=== PATIENT | male | born 1975 | race African-American/Black ===

== ENCOUNTER 2018-05-21 20:07 | Emergency (ER) | payer BC ==
[~2018-05-21] VITALS: Ht 170.2 cm; Wt 99.8 kg
[2018-05-21 20:29] VITALS: BP 131/82
--- NOTE | 2018-05-21 20:29 | NUR ---
ED Nurse Note: Pt arrived ED from home. C/o injuried on his left thumb when he was cutting food at home. Pt is A/OX 4. Vital signs stable at this time, waiting for orders.
--- NOTE | 2018-05-21 20:51 | Emergency Room Report ---
History of Present Illness General Chief Complaint: Laceration Source: Patient Present Illness HPI Patient presents with a puncture type wound to his left thumb Patient was cutting something with his right hand He reports plastic It was a switch blade type knife essentially slipped puncturing the outside part of his left thumb He reports that he required about 20-30 minutes to control the bleeding he had felt somewhat lightheaded at the time as well And presents for further evaluation there appears to be appropriate control with pressure was applied prior Allergies: Coded Allergies: No Known Allergies (Unverified , 05/21/18) Patient History Past Medical History: see triage record Pertinent Family History: none Reviewed Nursing Documentation: PMH: Agreed; PSxH: Agreed Nursing Documentation-PMH Past Medical History: No Stated History Review of Systems All Other Systems: negative except mentioned in HPI Physical Exam Vital Signs Date Time Temp Pulse Resp B/P (MAP) Pulse Ox O2 Delivery O2 Flow Rate FiO2 05/21/18 20:20 98.1 68 16 130/83 96 Room Air Sp02 EP Interpretation: reviewed, normal General Appearance: well appearing, no apparent distress Head: normocephalic, atraumatic Eyes: bilateral eye PERRL, bilateral eye EOMI ENT: normal pharynx, no angioedema Neck: supple Respiratory: no respiratory distress, no retraction, no accessory muscle use Cardiovascular #1: regular rate, rhythm Musculoskeletal: other - Small puncture type wound appreciated lateral aspect of the left thumb distally, no active expanding hematoma. No obvious hematoma, tender - On palpation of the specific area however able to fully flex and extend the thumb without focal deficit Neurologic: alert, oriented x3, responsive Psychiatric: normal inspection Skin: other - As above Lymphatic: no adenopathy Medical Decision Making Diagnostic Impression: Primary Impression: Puncture wound ER Course Given the history exam and presentation area was cleansed appropriately there continues not to be any evidence of bleeding or expanding hematoma patient was provided with tetanus shot Sterile dressing with bulky type dressing is applied to prevent further bending of the thumb And patient stable for close outpatient follow-up Last Vital Signs Date Time Temp Pulse Resp B/P (MAP) Pulse Ox O2 Delivery O2 Flow Rate FiO2 05/21/18 20:20 98.1 68 16 130/83 96 Room Air Status: improved Disposition: HOME, SELF-CARE Condition: Improved Scripts Trimethoprim/Sulfamethoxazole 160/800* (BACTRIM DS TABLET*) 1 Each Tablet 1 TAB ORAL Q12H, #14 TAB 0 Refills Prov: Goyo Hernandez DO 05/21/18 Additional Instructions: Patient is provided with the discharge instructions notified to follow up with primary doctor in the next 2-3 days otherwise return to the er with any worsening symptoms. Please note that this report is being documented using [employer] technology. This can lead to erroneous entry secondary to incorrect interpretation by the dictating instrument. Goyo Hernandez DO May 21, 2018 20:51
[2018-05-21] MEDS ORDERED: Hydrogen Peroxide 473ml Bottle TOPIC ONE (21:00)
[2018-05-21] MEDS ORDERED: Bacitracin Oint UD TOPIC ONE (21:00)
[2018-05-21] MEDS ORDERED: BACTRIM DS TAB1 EAC1 ORAL (21:39)
[2018-05-21] MEDS ORDERED: Bactrim-DS 1 tab ORAL ONE (21:45)
[2018-05-21] MEDS ORDERED: Tetanus/Diptheria/Pertussis IM ONE (22:00)
[2018-05-21 22:07] VITALS: BP 129/81
--- NOTE | 2018-05-21 22:07 | NUR ---
ER DISCHARGE NOTE: Patient is cleared to be discharged per Dr. Hernandez. Pt is A/O x 4 on room air with stable vital signs. Pt was given D/C and prescription instructions and was able to verbalize understanding. Pt's ID band removed. Pt is able to ambulate with steady gait and took all belongings. Accompanied by his family.
== END 2018-05-21 22:07 | disposition home or self-care (01) ==
LOC: EMR 21:00
DX: S61.032A Puncture wound without foreign body of left thumb without damage to nail, initial encounter (principal); Z23 Encounter for immunization; W26.0XXA Contact with knife, initial encounter; Y92.9 Unspecified place or not applicable
CPT/HCPCS: 90471; 90715; 99282